=== PATIENT | female | born 1950 | race Caucasian/White ===

== ENCOUNTER → 2024-11-15 | Outpatient (BNVA) | payer OTHER, SELFPAY | END | disposition home or self-care (01) | PROVIDERS: PCP Internal Medicine; Referring Provider Internal Medicine; Visit Provider Urology | DX: N20.0 Calculus of kidney (principal); I10 Essential (primary) hypertension; I25.10 Atherosclerotic heart disease of native coronary artery without angina pectoris; I48.91 Unspecified atrial fibrillation; E11.9 Type 2 diabetes mellitus without complications; E66.9 Obesity, unspecified; Z68.41 Body mass index [BMI] 40.0-44.9, adult | CPT/HCPCS: 81003; 99203; G0463 ==

== ENCOUNTER → 2025-01-06 | Outpatient (CLI) | payer OTHER, SELFPAY ==
--- NOTE | 2025-01-06 16:00 | XR_ITS ---
Examination: CT abdomen and pelvis without contrast. Coronal 3-D reconstructions. Sagittal 2-D reconstructions. Date and time of exam:January 06, 2025, 1620 hours INDICATIONS: Bilateral back pain several days, history kidney stones CTDI: vol (mGy): 16.3 DLP: (mGycm): 854 Technique: Axial images of the abdomen have been obtained, 3 mm slice thickness Intravenous contrast material has not been administered. Low dose protocols were performed. One or more of the following dose reduction techniques were used; automated exposure control, adjustment of the mA and/or KV according to patient size, use of iterative reconstruction technique. Findings: No focal liver lesions Absent gallbladder Spleen not enlarged No pancreatic or adrenal mass End-stage right hydronephrotic sac with multiple renal calculi including large staghorn calculus involving most of the calyces and right renal pelvis Moderate left renal parenchymal scar formation No left hydronephrosis Normal appendix No pelvic mass Contracted urinary bladder Right hip bipolar hemiarthroplasty with satisfactory alignment. Advanced left hip osteoarthritis IMPRESSION: End-stage right hydronephrotic sac with multiple renal calculi including a large right staghorn calculus occupying most of the right renal calyces and renal pelvis Consider nuclear medicine kidney function study follow-up to confirm no flow or function to the right kidney
== END | disposition home or self-care (01) ==
LOC: CCTX 16:05
PROVIDERS: PCP Internal Medicine; Referring Provider Urology; Visit Provider Urology
DX: N13.30 Unspecified hydronephrosis (principal); N20.0 Calculus of kidney
CPT/HCPCS: 74176

== ENCOUNTER → 2025-01-10 | Outpatient (BNVA) | payer OTHER, SELFPAY | END | disposition home or self-care (01) | PROVIDERS: PCP Internal Medicine; Referring Provider Internal Medicine; Visit Provider Urology | DX: N20.0 Calculus of kidney (principal); E11.9 Type 2 diabetes mellitus without complications; I10 Essential (primary) hypertension; I25.10 Atherosclerotic heart disease of native coronary artery without angina pectoris; E66.9 Obesity, unspecified; Z68.39 Body mass index [BMI] 39.0-39.9, adult | CPT/HCPCS: 81003; 99212; G0463 ==